=== PATIENT | female | born 1955 | race Two or more races ===

== ENCOUNTER 2024-06-15 20:07 | Emergency (ER) | payer OTHER, MEDICAID ==
[~2024-06-15] VITALS: Ht 170.2 cm; Wt 87.6 kg
[2024-06-15 20:45] VITALS: BP 137/84; PULSE 97; RESP 16; TEMP 97.9; O2SAT 98
[2024-06-15] MEDS ORDERED: METH4PAK PO (22:51)
[2024-06-15] MEDS: KETOROLAC TROMETH 60MG/2ML VIAL IM ONE (23:05)
== END 2024-06-15 23:20 | disposition home or self-care (01) ==
LOC: ER 20:07
DX: S46.811A Strain of other muscles, fascia and tendons at shoulder and upper arm level, right arm, initial encounter (principal); Z79.899 Other long term (current) drug therapy; X58.XXXA Exposure to other specified factors, initial encounter; Y93.89 Activity, other specified; Y92.098 Other place in other non-institutional residence as the place of occurrence of the external cause; Y99.8 Other external cause status
CPT/HCPCS: 73030; 96372; 99283; J1885

== ENCOUNTER 2025-01-31 07:19 | Outpatient (CLI) | payer OTHER, MEDICAID ==
[~2025-01-31 07:19] MED LIST: METH4PAK PO
[2025-01-31 07:39] LABS: Urine Bacteria None Seen /hpf (None Seen)
[2025-01-31 07:45] LABS: Basophils # (auto) 0.1 10 ^3/uL (0-0.2); Eosinophils # (auto) 0.2 10 ^3/uL (0-0.8); Eosinophils % (auto) 2.9 % (0.0-7.0); Hematocrit 44.5 % (36.0-46.0); Lymphocytes # (auto) 2.5 10 ^3/uL (0.4-5.4); Mean Corpuscular Hemoglobin 28.6 pg (28.0-32.0); Mean Corpuscular Hgb Conc. 33.7 g/dL (32.0-36.0); Monocytes # (auto) 0.4 10 ^3/uL (0-1.3); Neutrophils # (auto) 3.1 10 ^3/uL (1.6-8.6); Neutrophils % (auto) 50.1 % (37.0-80.0); Nucleated Red Blood Cells % 0.1 %; Platelet Count (auto) 366 10^3/uL (140-450); Red Blood Cells 5.23 10^6/uL (4.0-5.20); Red Cell Distribution Width 14.2 % (11.8-14.3); White Blood Cell 6.3 10^3/uL (4.4-10.8)
[2025-01-31 07:48] LABS: Urine Blood TRACE /uL (Negative); Urine Clarity Clear (Clear); Urine Color Light-Yellow (Yellow); Urine Protein, UAD Negative (Negative); Urine Squamous Epithelial Cell FEW /hpf (<5); Urine Urobilinogen Normal (Negative); Urine WBC 1 /HPF (0-5)
[2025-01-31 08:47] LABS: Creatinine, Urine 102.57 mg/dL (30.0-125.0)
[2025-01-31 08:50] LABS: Alanine Aminotransferase 32 U/L (7-40); Albumin 4.6 g/dL (3.2-4.8); Alkaline Phosphatase 99 U/L (46-116); Anion Gap 8 (5-15); Aspartate Aminotransferase 20 U/L (13-40); BUN/Creatinine Ratio 16.3 (10.0-20.0); Bilirubin, Total 0.5 mg/dL (0.2-1.0); Blood Urea Nitrogen 21 mg/dL (9-23); Calcium 10.4 mg/dL (8.7-10.4); Carbon Dioxide 30 mmol/L (20-31); Chloride 103 mmol/L (98-107); Glucose 104 mg/dL (74-106); HDL Cholesterol 48 mg/dL (40-59); Potassium 3.8 mmol/L (3.5-5.1); Sodium 141 mmol/L (136-145); Triglycerides 108 mg/dL (< 150)
[2025-01-31 08:55] LABS: Cholesterol 220 mg/dL (< 200); LDL Cholesterol 155 mg/dL (< 100); Total Protein 8.2 g/dL (5.7-8.2)
== END 2025-01-31 17:00 | disposition home or self-care (01) ==
LOC: LAB 07:19
PROVIDERS: ATTEND Internal Medicine
DX: I13.10 Hypertensive heart and chronic kidney disease without heart failure, with stage 1 through stage 4 chronic kidney disease, or unspecified chronic kidney disease (principal); N18.9 Chronic kidney disease, unspecified; R73.03 Prediabetes; R80.9 Proteinuria, unspecified; L81.8 Other specified disorders of pigmentation; Z00.00 Encounter for general adult medical examination without abnormal findings; Z86.19 Personal history of other infectious and parasitic diseases
CPT/HCPCS: 36415; 80053; 80061; 81001; 82043; 82570; 83036; 84439; 84443; 85025; 86703; 86706; 86803